=== PATIENT | female | born 1980 | race African-American/Black ===

== ENCOUNTER 2019-04-16 08:24 | Emergency (ER) | payer OTHER ==
[~2019-04-16] VITALS: Ht 172.7 cm; Wt 70.8 kg
[~2019-04-16 08:24] MED LIST: ACETAMINOPHEN650 M5 PO; AZITHROMYCIN 2250 MG PO; BACTRIM DS TAB1 EACH PO; BENADRYL25 MG PO; BIRTH CONTROL; CIPROFLOXACIN500 M1 PO; DARVOCET-N 1001 EACH PO; DIPHENHYDRAMINE TOP; FLAGYL500 MG PO; HYDROCERIN CREA1 JAR TOP; MONONESSA1 EACH PO; NORCO 5-325 TA1 EACH PO; PREDNISONE 10 M10 M1 PO; SPRINTEC1 EACH PO; VALTREX 500 MG500 M1 PO; WOMEN'S DAILY1 EACH PO
[2019-04-16 10:53] LABS: ABSOLUTE NEUTROPHILS 3.2 thou/uL (1.4-8.2); BASOPHILS 0.9 % (0.0-2.0); EOSINOPHILS 2.5 % (0.0-3.0); HEMOGLOBIN 12.9 gm/dL (12.0-15.0); LYMPHOCYTES 31.4 % (24.0-44.0); MCH 26.3 pg (26.0-34.0); MCV 79.9 fL (80.0-100.0); MONOCYTES 7.3 % (1.0-8.0); PLATELET COUNT 341 thou/uL (150-400); POLYS 57.9 % (36.0-66.0); RBC 4.89 mil/uL (4.20-5.00); RDW 13.9 % (10.5-14.5); WBC 5.6 thou/uL (4.0-11.0)
[2019-04-16 11:02] LABS: ANION GAP 11 mmol/L (7-16); BUN 8 mg/dL (7-18); CALCIUM 8.9 mg/dL (8.5-10.1); CHLORIDE 104 mmol/L (98-107); CO2 26 mmol/L (21-32); CREATININE 0.9 mg/dL (0.6-1.0); GLUCOSE 92 mg/dL (74-106); POTASSIUM 3.9 mmol/L (3.5-5.1); SODIUM 141 mmol/L (136-145)
[2019-04-16 11:11] LABS: TROPONIN-I <0.06 ng/mL (<0.06)
[2019-04-16 12:51] VITALS: BP 117/69
--- NOTE | 2019-04-18 22:30 | EKG ---
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1980 Requested By: Rob Saez Order Number: [id number] MD: Russel Gallardo Measurements Intervals [place] Rate: 71 P: 44 RI: 153 QRS: 13 QRSD: 76 T: 24 QT: 384 QTc: 418 Interpretive Statements Sinus rhythm Low voltage, precordial leads No previous ECG available for comparison Electronically Signed On 04-18-2019 22:30:12 CDT by Russel Gallardo [email or web address] ��������������������������������������������� <ELECTRONICALLY SIGNED> ���������������������������������������� By: Russel Gallardo MD ��������������������������������������������� 04/18/192229 0940 0940 Russel Gallardo MD /RODRIGO
== END 2019-04-16 12:51 | disposition home or self-care (01) ==
LOC: ER 08:24
PROVIDERS: Emergency Medicine
DX: R06.00 Dyspnea, unspecified (principal); R06.02 Shortness of breath; M79.651 Pain in right thigh; Z88.0 Allergy status to penicillin

== ENCOUNTER 2021-06-09 14:54 | Emergency (ER) | payer OTHER ==
[~2021-06-09] VITALS: Ht 167.6 cm; Wt 96.6 kg
[2021-06-09] MEDS ORDERED: ELDERBERRY-VIT1 EACH PO (15:37)
[2021-06-09 15:55] LABS: ABSOLUTE NEUTROPHILS 5.4 thou/uL (1.4-8.2); BASOPHILS 0.7 % (0.0-2.0); EOSINOPHILS 0.9 % (0.0-3.0); HEMATOCRIT 42.4 % (37.0-47.0); LYMPHOCYTES 19.5 % (24.0-44.0); MCH 26.9 pg (26.0-34.0); MCV 81.8 fL (80.0-100.0); MONOCYTES 5.8 % (1.0-8.0); POLYS 73.1 % (36.0-66.0); RBC 5.19 mil/uL (4.20-5.00); RDW 13.8 % (10.5-14.5); WBC 7.3 thou/uL (4.0-11.0)
[2021-06-09 16:04] LABS: ANION GAP 14 mmol/L (7-16); BUN 9 mg/dL (7-18); CALCIUM 9.2 mg/dL (8.5-10.1); CHLORIDE 105 mmol/L (98-107); CO2 22 mmol/L (21-32); CREATININE 1.1 mg/dL (0.6-1.0); GLUCOSE 99 mg/dL (74-106); POTASSIUM 3.6 mmol/L (3.5-5.1); SODIUM 141 mmol/L (136-145)
[2021-06-09 16:15] LABS: ALBUMIN 3.5 g/dL (3.4-5.0); SGOT 16 U/L (15-37); SGPT 24 U/L (14-59); TOTAL BILIRUBIN 0.4 mg/dL (0.2-1.0); TROPONIN-I <0.06 ng/mL (<0.06)
[2021-06-09 16:55] LABS: PLATELET COUNT 290 thou/uL (150-400)
[2021-06-09 17:04] VITALS: BP 118/68
--- NOTE | 2021-06-10 11:00 | EKG ---
[address] [address] ELECTROCARDIOGRAM REPORT Name: ERICKA MARTINEZ [id number] Admission: 06/09/21 Attend Phys: Discharge: 06/09/21 Date of : 76 Report #: [id number] [facility] ED Test Date: 2021-06-09 Test Time: 15:15:15 Pat Name: ERICKA MARTINEZ Department: Room: Gender: F Direct Marketing Coordinator: JOSE : 1980 Requested By: Azar Mota Order Number: [id number] MD: Jason Mosqueda Measurements Intervals [place] Rate: 126 P: 40 [place]: 118 QRS: 18 QRSD: 69 T: 18 QT: 315 QTc: 457 Interpretive Statements Sinus tachycardia Compared to ECG 04/16/2019 09:40:26 Sinus rhythm no longer present Electronically Signed On 06-10-2021 11:00:04 CDT by Jason Mosqueda [email or web address] <ELECTRONICALLY SIGNED> By: Jason Mosqueda MD 06/10/21 1100 1515 1515 Jason Mosqueda MD /EPI
== END 2021-06-09 17:04 | disposition home or self-care (01) ==
LOC: ER 14:54
PROVIDERS: Emergency Medicine
DX: R00.2 Palpitations (principal); T50.B95A Adverse effect of other viral vaccines, initial encounter; M79.651 Pain in right thigh; Z79.899 Other long term (current) drug therapy; Z88.0 Allergy status to penicillin; Z72.89 Other problems related to lifestyle; Z20.822 Contact with and (suspected) exposure to COVID-19; Y92.89 Other specified places as the place of occurrence of the external cause